=== PATIENT | female | born 1985 | race Two or more races ===

== ENCOUNTER 2016-04-02 21:18 | Emergency (ER) | payer MEDICAID ==
[~2016-04-02] VITALS: Ht 162.6 cm; Wt 78.0 kg
[2016-04-02 21:50] VITALS: BP 123/79
--- NOTE | 2016-04-02 22:35 | Emergency Room Report ---
History of Present Illness General Chief Complaint: Abdominal Pain Source: Patient Present Illness HPI 30 YO F , approximately 7 weeks by LMP presents with sharp pelvic pain today without associated nausea/vomiting, diarrhea, vaginal bleeding/ discharge, fever/chills, or urinary complaints. No previous , miscarriage or ectopic. Hasnt taken any other OTC meds. Hasnt followed up with [facility] this - has appt in 2 days, Thursday. Not on fertility tx. Allergies: Coded Allergies: No Known Allergies (Unverified , 04/02/16) Patient History Past Medical History: none Past Surgical History: none Pertinent Family History: none Last Menstrual Period: 02/10/16 Now: Yes - 7 weeks Immunizations: UTD Reviewed Nursing Documentation: PMH: Agreed, PSxH: Agreed Nursing Documentation-PMH Past Medical History: No Stated History Review of Systems All Other Systems: negative except mentioned in HPI Physical Exam Vital Signs Date Time Temp Pulse Resp B/P Pulse Ox O2 Delivery O2 Flow Rate FiO2 04/02/16 21:41 98.4 83 16 123/79 100 Room Air Sp02 EP Interpretation: reviewed, normal General Appearance: normal inspection, well appearing, no apparent distress, alert, GCS 15, non-toxic Head: normocephalic, atraumatic Eyes: bilateral eye EOMI, bilateral eye PERRL ENT: normal ENT inspection, hearing grossly normal, normal voice Neck: normal inspection, full range of motion, supple, no bony tend Respiratory: normal inspection, lungs clear, normal breath sounds, no respiratory distress, no retraction, no wheezing Cardiovascular #1: regular rate, rhythm, no edema Gastrointestinal: normal inspection, normal bowel sounds, non tender, soft, no guarding, no hernia Genitourinary: no CVA tenderness, other - bedside transabd sono: GS in uterus with pole with +FHR seen Musculoskeletal: normal inspection, back normal, normal range of motion, Quintin' s Sign negative Neurologic: normal inspection, alert, oriented x3, responsive, manager meat III-XII nml as tested, motor strength/tone normal, speech normal Psychiatric: normal inspection, judgement/insight normal, mood/affect normal Skin: normal inspection, normal color, no rash Lymphatic: normal inspection Medical Decision Making Diagnostic Impression: Primary Impression: Pelvic pain affecting in first trimester, antepartum ER Course + GS with pole on bedside sono. Approx 6-7weeks IUP UA: +LE 2-4WBC Tylenol given with improvement in symptoms DC home Will Tx with Macrobid Rx Tylenol for pain Understands to return to ER with worsening pain, vaginal bleeding Will followup on Thursday with OB Last Vital Signs Date Time Temp Pulse Resp B/P Pulse Ox O2 Delivery O2 Flow Rate FiO2 04/02/16 21:41 98.4 83 16 123/79 100 Room Air Status: improved Disposition: HOME, SELF-CARE Scripts Acetaminophen (Tylenol) 325 Mg Tablet 650 MG ORAL Q6H Y for For Pain, #30 TAB 0 Refills Prov: YOAN LOAIZA M.D. 04/02/16 Nitrofurantoin Monohyd/M-Cryst* (MACROBID 100 MG*) 100 Mg Capsule 100 MG ORAL EVERY 12 HOURS for 7 Days, #14 CAP Prov: YOAN LOAIZA M.D. 04/02/16 Referrals: NON PHYSICIAN (PCP) YOAN LOAIZA M.D. Apr 02, 2016 22:35
[2016-04-02 22:40] LABS: APPEARANCE,URINE CLEAR; KETONES,URINE NEGATIVE (NEGATIVE); LEUKOCYTE ESTERASE ,URINE 3+ (NEGATIVE); NITRITE,URINE NEGATIVE (NEGATIVE); PH,URINE 7 (4.5-8.0); PROTEIN,URINE NEGATIVE (NEGATIVE); UROBILINOGEN,URINE NORMAL MG/DL (0.0-1.0)
[2016-04-02 22:52] LABS: BACTERIA,URINE FEW /HPF; RBC,URINE 0-2 /HPF (0 - 2); SQUAMOUS EPITHELIAL CELL,UR FEW /LPF (NONE/OCC)
[2016-04-02] MEDS ORDERED: TYLENOL325 MG ORAL (22:58)
[2016-04-02] MEDS ORDERED: NITROFURANTOIN100 M2 ORAL (22:58)
[2016-04-02 23:08] VITALS: BP 125/80
== END 2016-04-02 23:08 | disposition home or self-care (01) ==
LOC: EMR 22:05
DX: O26.891 Other specified pregnancy related conditions, first trimester (principal); Z3A.01 Less than 8 weeks gestation of pregnancy; R10.2 Pelvic and perineal pain
CPT/HCPCS: 81003; 81025; 99284